=== PATIENT | female | born 1995 | race Caucasian/White ===

== ENCOUNTER 2017-03-28 17:19 | Emergency (ER) | payer MEDICAID ==
[~2017-03-28] VITALS: Ht 154.9 cm; Wt 70.0 kg
[~2017-03-28 17:19] MED LIST: PREN-29 PO
[2017-03-28 17:28] VITALS: Ht 154.9 cm; Wt 70.0 kg
--- NOTE | 2017-03-28 20:42 | ERD ---
ER Documentation Chief Complaint Date/Time DATE: 03/28/17 TIME: 20:41 Chief Complaint LT SIDE RIB PAIN , LT ARM PAIN X 5 DAYS HPI 21year-old female presents to emergency department for complaints of left-sided chest pain rib pain radiating to the left arm area for 5 days. Patient has been having cough congestion for the last 5 days, is currently on azithromycin for treatment. Patient took Mucinex at home to help with. Patient describes the pain in the left chest area sharp pain, 6/10 scale, no better or worse with anything. Patient denies any numbness or tingling. Patient denies any dyspnea exertion or dyspnea on lying down. Patient denies any dizziness. ROS All systems reviewed and are negative except as per history of present illness. Medications Home Meds Reported Medications Vit-Fe Fumarate-FA* (Jason Tablet*) 1 Tab Tablet, 1 TAB PO DAILY, TAB 01/30/15 Allergies Allergies: Coded Allergies: Penicillins (Verified Allergy, Mild, RASH, 11/21/14) ibuprofen (Unverified Allergy, Unknown, 11/21/14) PMhx/Soc Medical and Surgical Hx: pt denies Medical Hx, pt denies Surgical Hx History of Surgery: No Anesthesia Reaction: No Hx Neurological Disorder: No Hx Respiratory Disorders: No Hx Cardiac Disorders: No Hx Psychiatric Problems: No Hx Miscellaneous Medical Probl: No Hx Alcohol Use: No Hx Substance Use: No Hx Tobacco Use: No Smoking Status: Never smoker FmHx Family History: No coronary disease, No diabetes, No other Physical Exam Vitals Vital Signs Date Time Temp Pulse Resp B/P Pulse Ox O2 Delivery O2 Flow Rate FiO2 03/28/17 17:28 98.3 88 16 133/59 98 Physical Exam GENERAL: The patient is well developed and appropriate for usual state of health, in no apparent distress. CHEST: Clear to auscultation bilaterally. There are no rales, wheezes or rhonchi. HEART: Regular rate and rhythm. No murmurs, clicks, rubs or gallops. No S3 or S4. ABDOMEN: Soft, nontender and nondistended. Good bowel sounds. No rebound or guarding. No gross peritonitis. No gross organomegaly or masses. No Moses sign or McBurney point tenderness. BACK: No midline or flank tenderness. EXTREMITIES: Equal pulses bilaterally. There is no peripheral clubbing, cyanosis or edema. No focal swelling or erythema. Full range of motion. Grossly neurovascularly intact. NEURO: Alert and oriented. Cranial nerves 2-12 intact. Motor strength in all 4 extremities with 5/5 strength. Sensation grossly intact. Normal speech and gait. SKIN: There is no apparent rash or petechia. The skin is warm and dry. HEMATOLOGIC AND LYMPHATIC: There is no evidence of excessive bruising or lymphedema. No gross cervical, axillary, or inguinal lymphadenopathy. Results 24 hrs Current Medications Medications (Trade) Dose Ordered Sig/Sawyer Route PRN Reason Start Time Stop Time Status Last Admin Dose Admin Tramadol HCl (Ultram) 50 mg ONCE ONCE PO 03/28/17 23:00 03/28/17 23:01 Patient was given medication for pain here in emergency department, after treatment, patient verbalized feeling much better. Patient's pain is improved. EKG was done, read by me and is normal sinus rhythm at a rate of 79 normal axis , there is no ST changes or changes in the EKG that indicates any cardiac emergencies at this time. Patient's EKG was also reviewed by Dr. Joyce. Impression: no acute findings on EKG PROCEDURE: XR Chest. CLINICAL INDICATION: Chest pain TECHNIQUE: Single AP portable chest. COMPARISON: No prior Chest x-ray FINDINGS: The cardiomediastinal silhouette is within normal limits of size.The lungs are clear without pleural effusion or focal consolidation. No pneumothorax. The osseous structures and soft tissues are unremarkable. IMPRESSION: 1. No evidence for active cardiopulmonary disease. RPTAT:AAJJ Physician Anju Date Time Electronically viewed and signed by Physician Anju on 03/28/2017 22:40 ROSALES/ CC: KETTY DERAS [employer] Procedures/MDM Medical Decision Making: Patient's symptoms of chest pain nonspecific at this time, possible musculoskeletal pain, possibly from acute bronchitis patient is been coughing for a few days. Most likely chest wall strain. No symptoms of any pneumonia.There is low suspicion for cardiopulmonary emergencies at this time. Patient has low risk factors. EKG is normal, there is no changes in the EKG that indicates cardiac emergencies. Chest X-ray does not show cardiopulmonary emergencies at this time. There is low suspicion for aortic aneurysm, myocardial infarction, pneumothorax, pleural effusion, pulmonary embolism, or any other cardiopulmonary emergencies at this time. Rx;Guafenasin with codeine, Zyrtec, albuterol, continue azithromycin Dispostion: Home. Stable Departure Diagnosis: Primary Impression: Acute bronchitis Bronchitis organism: unspecified organism Qualified Code: J20.9 - Acute bronchitis, unspecified organism Additional Impression: Strain of chest wall Encounter type: initial encounter Qualified Code: S29.011A - Muscle strain of chest wall, initial encounter Condition: Stable Patient Instructions: Bronchitis, Antiobiotic Treatment (Adult), Chest Wall Strain KETTY DERAS NP Mar 28, 2017 20:42
--- NOTE | 2017-03-28 22:40 | RADRPT ---
PROCEDURE: XR Chest. CLINICAL INDICATION: Chest pain TECHNIQUE: Single AP portable chest. COMPARISON: No prior Chest x-ray FINDINGS: The cardiomediastinal silhouette is within normal limits of size.The lungs are clear without pleura l effusion or focal consolidation. No pneumothorax. The osseous structures and soft tissues are unre markable. IMPRESSION: 1. No evidence for active cardiopulmonary disease. RPTAT:AAJJ Silvia Chiang Physician Date Time Electronically viewed and signed by Silvia Chiang Physician on 03/28/2017 22:40 ROSALES/
[2017-03-28] MEDS ORDERED: CETI10CA PO (22:58)
[2017-03-28] MEDS ORDERED: ALBU8.5H3 INH (22:58)
[2017-03-28] MEDS ORDERED: GUAI473L22 PO (22:58)
[2017-03-28] MEDS ORDERED: traMADol 50 MG TAB PO ONE (23:00)
[2017-03-28 23:38] VITALS: BP 108/75; PULSE 74
== END 2017-03-28 23:40 | disposition home or self-care (01) ==
LOC: FTE 17:19
DX: J20.9 Acute bronchitis, unspecified (principal); S29.011A Strain of muscle and tendon of front wall of thorax, initial encounter; R07.9 Chest pain, unspecified; X58.XXXA Exposure to other specified factors, initial encounter; Y92.9 Unspecified place or not applicable
CPT/HCPCS: 71010; 93005; Z7502; Z7610

== ENCOUNTER 2017-05-10 16:15 | Emergency (ER) | payer MEDICAID ==
[~2017-05-10] VITALS: Ht 154.9 cm; Wt 67.0 kg
[~2017-05-10 16:15] MED LIST changes: +ALBU8.5H3 INH; +CETI10CA PO; +GUAI473L22 PO
[2017-05-10 16:28] VITALS: Ht 154.9 cm; Wt 67.0 kg
--- NOTE | 2017-05-10 19:24 | ERD ---
ER Documentation Chief Complaint Date/Time DATE: 05/10/17 TIME: 19:[address] x 3 days HPI 21 year old female comes in with a sore throat 3 days, she states that this feels similar to when she had strep throat when she which she has about every year. Pain is sharp, and the tonsils, she has noticed white patches. She has not had any fevers or chills, trouble swallowing or voice changes. ROS All systems reviewed and are negative except as per history of present illness. Medications Home Meds Active Scripts Acetaminophen* (Tylophen*) 500 Mg Capsule, 1 CAP PO Q6H Y for PAIN AND OR ELEVATED TEMP, #20 CAP Prov:LAURO COLORADO PA-C 05/10/17 Lidocaine (Lidocaine Viscous) 100 Ml Soln, 10 ML MM TID, #4 OZ Prov:LAURO COLORADO PA-C 05/10/17 Albuterol Sulfate* (Proair HFA*) 8.5 Gm Hfa.aer.ad, 2 PUFF INH Q4H Y for WHEEZING AND SOB, #1 INHALER Prov:KETTY DERAS NP 03/28/17 Cetirizine Hcl* (Zyrtec*) 10 Mg Capsule, 10 MG PO DAILY, #30 TAB.CHEW Prov:KETTY DERAS NP 03/28/17 Guaifenesin-Codeine Phosphate* (Guaifenesin* AC Cough Syrup) 473 Ml Liquid, 10 ML PO Q4H Y for COUGH, #120 ML Prov:KETTY DERAS NP 03/28/17 Reported Medications Vit-Fe Fumarate-FA* (Jason Tablet*) 1 Tab Tablet, 1 TAB PO DAILY, TAB 01/30/15 Allergies Allergies: Coded Allergies: Penicillins (Verified Allergy, Mild, RASH, 05/10/17) ibuprofen (Unverified Allergy, Unknown, 05/10/17) PMhx/Soc Medical and Surgical Hx: pt denies Medical Hx, pt denies Surgical Hx History of Surgery: No Anesthesia Reaction: No Hx Neurological Disorder: No Hx Respiratory Disorders: No Hx Cardiac Disorders: No Hx Psychiatric Problems: No Hx Miscellaneous Medical Probl: No Hx Alcohol Use: Yes (ocassional) Hx Substance Use: No Hx Tobacco Use: No Smoking Status: Never smoker Physical Exam Vitals Vital Signs Date Time Temp Pulse Resp B/P Pulse Ox O2 Delivery O2 Flow Rate FiO2 05/10/17 16:28 97.4 76 18 124/76 99 Physical Exam General: Well-developed, well-nourished. The patient appears in no acute distress. HEENT: Head is normocephalic, atraumatic. No scleral icterus. bilateral tonsillar exudate, no masses, no trismus Neck: Supple. Nontender. Lungs: Clear to auscultation. Normal air movement. Heart: Regular rate and rhythm. S1 and S2 are normal. No murmurs, gallops, or rubs. Abdomen: Nondistended. Extremities: No clubbing or cyanosis. Moving extremities x 4. No weakness. Neurologic: Alert and oriented 3. No focal deficits. Normal speech and gait. Skin: Normal turgor. No rash or lesions. Procedures/MDM The patient is a 21 year old female who comes in with acute pharyngitis, likely viral, rapid strep is negative. There is no abscess seen, or signs of bacterial tracheitis. The patient has a differential diagnosis of a viral upper respiratory infection, bacterial upper respiratory infection, bronchitis, pneumonia, pharyngitis, laryngitis, epiglottitis, croup, pneumonia. Patient has a normal pulmonary examination, clear breath sounds, normal pulse oximetry, with no corrective measures needed at this time. Fluids, rest, antipyretics were encouraged. Departure Diagnosis: Primary Impression: Pharyngitis Condition: Good LAURO COLORADO PA-C May 10, 2017 19:24
[2017-05-10] MEDS ORDERED: LIDO20SO19 MM (19:43)
[2017-05-10] MEDS ORDERED: ACET500C5 PO (19:43)
== END 2017-05-10 19:49 | disposition home or self-care (01) ==
LOC: FTE 16:15
DX: J02.9 Acute pharyngitis, unspecified (principal)
CPT/HCPCS: 87880; Z7502; 99283

== ENCOUNTER 2017-08-18 16:52 | Emergency (ER) | END 2017-08-18 21:15 | disposition home or self-care (01) ==